=== PATIENT | female | born 1980 | race Two or more races ===

== ENCOUNTER 2016-08-09 17:37 | Emergency (ER) | payer MEDICAID ==
[~2016-08-09] VITALS: Ht 167.6 cm; Wt 77.1 kg
[~2016-08-09 17:37] MED LIST: LEV500T PO; LEVO25TA49 PO; METR500T PO
[2016-08-09 18:21] VITALS: BP 135/85
== END 2016-08-09 19:46 | disposition home or self-care (01) ==
LOC: ER 17:37
DX: F12.10 Cannabis abuse, uncomplicated (principal); F15.10 Other stimulant abuse, uncomplicated; E07.89 Other specified disorders of thyroid; F17.210 Nicotine dependence, cigarettes, uncomplicated; Z87.442 Personal history of urinary calculi; Z76.0 Encounter for issue of repeat prescription

== ENCOUNTER → 2019-04-02 | Emergency (ER) | payer SELFPAY ==
[~2019-04-02] VITALS: Ht 170.2 cm; Wt 86.2 kg
[~2019-04-02] MED LIST changes: +HYDROcodone-ACET 5/325MG TAB PO ONE
[2019-04-02 21:41] VITALS: BP 137/80
== END | disposition home or self-care (01) ==
LOC: ER 20:19
DX: R10.9 Unspecified abdominal pain (principal); E07.9 Disorder of thyroid, unspecified; Z79.899 Other long term (current) drug therapy; F17.210 Nicotine dependence, cigarettes, uncomplicated
CPT/HCPCS: 74176

== ENCOUNTER 2019-04-03 02:55 | Emergency (ER) | payer SELFPAY ==
[~2019-04-03] VITALS: Ht 170.2 cm; Wt 86.2 kg
[~2019-04-03 02:55] MED LIST changes: -HYDROcodone-ACET 5/325MG TAB PO ONE
[2019-04-03] MEDS ORDERED: KETOROLAC TROMETH 60MG/2ML VIAL IM ONE (04:45)
[2019-04-03] MEDS ORDERED: methylPREDNISolone SOD SUCC 125 MG/2 ML VL IM ONE (04:45)
[2019-04-03 05:39] VITALS: BP 175/74
== END 2019-04-03 05:46 | disposition home or self-care (01) ==
LOC: ER 03:03
DX: M54.42 Lumbago with sciatica, left side (principal); F17.210 Nicotine dependence, cigarettes, uncomplicated
CPT/HCPCS: 96372; 99283; J1885; J2930